=== PATIENT | male | born 2000 | race African-American/Black ===

== ENCOUNTER 2021-04-08 12:09 | Emergency (ER) | payer SELFPAY ==
[~2021-04-08] VITALS: Ht 172.7 cm; Wt 75.3 kg
[2021-04-08 13:05] VITALS: BP 141/84
[2021-04-08] MEDS ORDERED: DIPH,PERTUSS(ACELL),TET VAC/PF 0.5 ML SYRINGE. VAX IM ONE (14:00)
[2021-04-08] MEDS ORDERED: MUPIROCIN 2 % OINTMENT 22GM TUBE. TP STA (14:25)
[2021-04-08] MEDS ORDERED: CEPH500T PO (14:37)
[2021-04-08] MEDS ORDERED: NAPR-514 PO (14:37)
--- NOTE | 2021-04-08 14:40 | PHYS DOC ---
Past Medical History Additional Past Medical Histor: ASPERGERS Past Surgical History: Other Additional Past Surgical Histo: LEG Smoking Status: Current Every Day Smoker Additional Information: 2 CIG A DAY Alcohol Use: None General Adult EDM: Chief Complaint: ABDOMINAL PAIN HPI: HPI: Patient is a 21 year old male with history of Asperger's who presents the ED today with complaints of bumps on the left abdomen that he noted on Thursday. Patient states the bumps are painful. Describes the pain as sharp and intermittent worse on things pressing on them. Denies any fever. Review of Systems: Review of Systems: Constitutional: Denies fever or chills. [] : Denies dysuria. [] Musculoskeletal: Denies back pain or joint pain. [] Integument: Reports bumps on the left lower abdomen Neurologic: Denies headache, focal weakness or sensory changes. [] Psychiatric: Denies depression or anxiety. [] Heart Score: C/O Chest Pain: N/A Risk Factors: Risk Factors: DM, Current or recent (<one month) smoker, HTN, HLP, family history of CAD, obesity. Risk Scores: Score 0 - 3: 2.5% MACE over next 6 weeks - Discharge Home Score 4 - 6: 20.3% MACE over next 6 weeks - Admit for Clinical Observation Score 7 - 10: 72.7% MACE over next 6 weeks - Early Invasive Strategies Current Medications: Current Medications Medications (Trade) Dose Ordered Sig/Deann Start Time Stop Time Status Last Admin Dose Admin Diphtheria/ Tetanus/Acell Pertussis (ADACEL TDap SYRINGE) 0.5 ml ONCE ONCE 04/08/21 14:00 04/08/21 14:03 DC Mupirocin (Bactroban) 1 isi 1X STAT 04/08/21 14:25 04/08/21 14:26 UNV Allergies: Allergies: Allergies Coded Allergies Type Severity Reaction Last Updated Verified No Known Drug Allergies 04/08/21 No Physical Exam: PE: Constitutional: Well developed, well nourished, no acute distress, non-toxic appearance. [] Skin: Left lower abdomen around the belt line/pubic region with 2 indurated areas roughly 1 x 1 cm each with surrounding erythema, the area is a firm tender to touch with no fluctuance. There is nothing to drain. They appear to be abscess from ingrown hairs Back: No tenderness, no CVA tenderness. [] Extremities: No tenderness, no cyanosis, no clubbing, ROM intact, no edema. [] Neurologic: Alert and oriented X 3, normal motor function, normal sensory function, no focal deficits noted. [] Psychologic: Affect normal, judgement normal, mood normal. [] Current Patient Data: Vital Signs: Vital Signs Date Time Temp Pulse Resp B/P (MAP) Pulse Ox O2 Delivery O2 Flow Rate FiO2 04/08/21 13:05 98.1 91 20 141/84 (103) 99 Room Air 98.1 EKG: EKG: [] Radiology/Procedures: Radiology/Procedures: [] Course & Med Decision Making: Course & Med Decision Making Pertinent Labs and Imaging studies reviewed. (See chart for details) Is a 21-year-old male patient presenting to the ED today with an early abscess formation on the pubic region from ingrown hairs. Patient's mother was not present in the ED when I saw the patient, patient has history of Asperger's. I called the phone number listed for mother, spoke to patient's mother's pediatric medical assistant who gave me another number to contact the mother. I went to patient's room, mother was in the room. I spoke to mother and patient. Informed mother the diagnosis. Recommended mupirocin and cephalexin. Recommended he does not shave his pubic region for at least 10 days. Talked about prevention and management of ingrown hairs. Recommended warm compresses to the affected area. Patient was given tetanus in the ED and mupirocin ointment Man Disclaimer: Man Disclaimer: This electronic medical record was generated, in whole or in part, using a voice recognition dictation system. Departure Departure Impression: Primary Impression: Ingrown hair Additional Impression: Abscess of groin, left Disposition: HOME / SELF CARE / HOMELESS Condition: STABLE Referrals: NO PCP (PCP) Follow-up with your doctor in 1 week Patient Instructions: Abscess, Ingrown Hair Additional Instructions: You were evaluated in the emergency room and noted to have abscess on your lower abdomen from ingrown hairs. Please do not shave for at least 7 to 10 days. Please apply warm compresses to the affected area twice a day. Please apply mupirocin to the affected area 3 times a day for 10 days. Take the prescribed oral antibiotics until completed. Please follow-up with your primary care doctor in 1 to 2 weeks. Come back to the ED at any point symptoms worsen Scripts Naproxen (NAPROXEN) 500 Mg Tablet 1 TAB PO BID for pain, #14 TAB 0 Refills Prov: MILDRED BEE APRN 04/08/21 Cephalexin (CEPHALEXIN) 500 Mg Tablet 1 TAB PO TID, #30 TAB Prov: MILDRED BEE APRN 04/08/21 MILDRED BEE APRN Apr 08, 2021 14:40
[2021-04-08] MEDS ORDERED: HYDROcodone/APAP 5/325MG 1 TAB TABLET PO ONE (14:45)
== END 2021-04-08 14:58 | disposition home or self-care (01) ==
LOC: ER 12:09
DX: L02.214 Cutaneous abscess of groin (principal); L73.1 Pseudofolliculitis barbae; F17.200 Nicotine dependence, unspecified, uncomplicated
CPT/HCPCS: 90471; 90715; 99283-25